=== PATIENT | female | born 1965 | race Caucasian/White ===

== ENCOUNTER 2020-08-26 07:26 | Day surgery (SDC) | payer OTHER | END 2020-08-26 11:40 | disposition home or self-care (01) | LOC: AMB-ENDOS 07:26 | PROVIDERS: ATTEND Colon & Rectal Surgery | DX: K63.5 Polyp of colon (principal); K64.2 Third degree hemorrhoids; Z20.822 Contact with and (suspected) exposure to COVID-19; Z12.11 Encounter for screening for malignant neoplasm of colon ==

== ENCOUNTER 2021-01-19 12:13 | Emergency (ER) | payer OTHER ==
[~2021-01-19] VITALS: Ht 157.5 cm; Wt 72.6 kg
[2021-01-19] MEDS ORDERED: COZAAR50 MG PO (12:34)
[2021-01-19] MEDS ORDERED: ORPHENADRINE C100 MG PO (15:26)
[2021-01-19] MEDS ORDERED: DICLOFENAC POTA50 MG PO (15:26)
== END 2021-01-19 16:15 ==
LOC: ER 12:13
DX: S30.0XXA Contusion of lower back and pelvis, initial encounter (principal); W18.39XA Other fall on same level, initial encounter; Y93.89 Activity, other specified; Y92.018 Other place in single-family (private) house as the place of occurrence of the external cause; Y99.8 Other external cause status